=== PATIENT | female | born 1965 | race Caucasian/White ===

== ENCOUNTER 2022-09-16 11:59 | Emergency (ER) | payer BC ==
[~2022-09-16] VITALS: Ht 157.5 cm; Wt 81.0 kg
[2022-09-16 12:10] VITALS: BP 153/91
[2022-09-16 12:30] VITALS: BP 149/93
[2022-09-16 13:00] VITALS: BP 138/89
[2022-09-16 13:30] VITALS: BP 156/98
[2022-09-16 14:00] VITALS: BP 152/97
[2022-09-16] MEDS ORDERED: TRAMADOL HYDROC50 M1 PO (14:01)
[2022-09-16 14:21] VITALS: BP 152/97
== END 2022-09-16 14:25 | disposition home or self-care (01) | DRG 563 ==
LOC: ED 11:59
PROC: 2W3SX1Z Immobilization of Right Foot using Splint (ICD-10-PCS; principal; 2022-09-16)
DX: S93.601A Unspecified sprain of right foot, initial encounter (principal); X50.0XXA Overexertion from strenuous movement or load, initial encounter; Y93.41 Activity, dancing; Y92.009 Unspecified place in unspecified non-institutional (private) residence as the place of occurrence of the external cause